=== PATIENT | female | born 1945 | race Caucasian/White ===

== ENCOUNTER 2017-10-31 10:00 | Inpatient (IN) | payer OTHER ==
[~2017-10-31] VITALS: Ht 157.5 cm; Wt 69.9 kg
[2017-10-31] MEDS ORDERED: BISOPROLOL FUMAR5 MG PO (12:24)
[2017-10-31] MEDS ORDERED: DAFLONEX-XL TA1 EACH PO (12:25)
[2017-10-31] MEDS ORDERED: LIPITOR20 MG PO (12:25)
[2017-10-31] MEDS ORDERED: SONATA10 M1 PO (12:27)
[2017-10-31] MEDS ORDERED: PROTONIX40 MG PO (12:27)
[2017-10-31] MEDS ORDERED: OMEGA 3 500 SO1 EACH PO (12:28)
[2017-10-31] MEDS ORDERED: VITAMIN D400 UNI2 PO (12:28)
[2017-10-31] MEDS ORDERED: ACTICAL SOFTGE1 EACH PO (12:28)
[2017-10-31] MEDS ORDERED: [UNRECOGNIZED DRUG - OTHER] (12:30)
== END 2017-11-10 17:47 | disposition home or self-care (01) | DRG 331 ==
LOC: SURH 11-07 05:39 → O/R 11-07 05:39 → SURG 11-07 07:00 → SURH 11-07 16:30
PROVIDERS: Surgery
PROC: 0DJD8ZZ Inspection of Lower Intestinal Tract, Via Natural or Artificial Opening Endoscopic (ICD-10-PCS; 2017-11-07)
PROC: 0DTN4ZZ Resection of Sigmoid Colon, Percutaneous Endoscopic Approach (ICD-10-PCS; principal; 2017-11-07 07:00)
DX: K57.32 Diverticulitis of large intestine without perforation or abscess without bleeding (principal); I11.9 Hypertensive heart disease without heart failure; E78.00 Pure hypercholesterolemia, unspecified; Z91.040 Latex allergy status

== ENCOUNTER 2017-10-31 14:58 | Outpatient (CLI) | payer OTHER ==
[~2017-10-31 14:58] MED LIST: ACTICAL SOFTGE1 EACH PO; BISOPROLOL FUMAR5 MG PO; DAFLONEX-XL TA1 EACH PO; LIPITOR20 MG PO; OMEGA 3 500 SO1 EACH PO; PROTONIX40 MG PO; SONATA10 M1 PO; VITAMIN D400 UNI2 PO; [UNRECOGNIZED DRUG - OTHER]
== END 2017-10-31 15:18 | disposition home or self-care (01) ==
LOC: LAB 14:58
DX: D68.9 Coagulation defect, unspecified (principal)

== ENCOUNTER → 2018-11-21 | Day surgery (SDC) | payer OTHER | END | disposition home or self-care (01) | LOC: AMB-ENDOS 07:59 | DX: K57.30 Diverticulosis of large intestine without perforation or abscess without bleeding (principal); R15.9 Full incontinence of feces ==